=== PATIENT | male | born 1995 | race Caucasian/White ===

== ENCOUNTER → 2017-03-03 | Outpatient (CLI) | payer OTHER ==
[2017-03-03 08:05] LABS: HEMOGLOBIN 14.9 g/dL (14.1-18.0); LYMPH # 2.3 K/mm3 (0.7-4.5); LYMPH % 31.9 % (10-50)
[2017-03-03 08:53] LABS: BUN 12 mg/dL (7-18); GFR (ESTIMATED) 120 ML/MIN (>60)
== END ==
LOC: LAB 07:48
PROVIDERS: Physician Assistant
DX: L70.0 Acne vulgaris (principal); Z79.899 Other long term (current) drug therapy

== ENCOUNTER → 2017-04-07 | Outpatient (CLI) | payer OTHER ==
[2017-04-07 08:26] LABS: HEMOGLOBIN 15.9 g/dL (14.1-18.0); LYMPH % 31.4 % (10-50)
[2017-04-07 10:26] LABS: BUN 10 mg/dL (7-18)
[2017-04-07 10:31] LABS: GFR (ESTIMATED) 105 ML/MIN (>60)
== END ==
LOC: LAB 08:12
PROVIDERS: Physician Assistant
DX: L70.0 Acne vulgaris (principal); Z79.899 Other long term (current) drug therapy

== ENCOUNTER → 2017-06-09 | Outpatient (CLI) | payer OTHER ==
[2017-06-09 08:50] LABS: HEMOGLOBIN 15.6 g/dL (14.1-18.0); LYMPH # 2.2 K/mm3 (0.7-4.5); LYMPH % 35.1 % (10-50)
[2017-06-09 11:07] LABS: BUN 12 mg/dL (7-18)
[2017-06-09 11:17] LABS: GFR (ESTIMATED) 120 ML/MIN (>60)
== END ==
LOC: LAB 08:11
PROVIDERS: Physician Assistant
DX: L70.0 Acne vulgaris (principal); Z79.899 Other long term (current) drug therapy